=== PATIENT | male | born 1980 | race Caucasian/White ===

== ENCOUNTER 2016-12-19 20:33 | Emergency (ER) | payer MEDICAID, OTHER ==
[~2016-12-19] VITALS: Ht 167.6 cm; Wt 54.4 kg
[2016-12-19] MEDS ORDERED: NKM (20:39)
[2016-12-19] MEDS ORDERED: IBUPROFEN600 MG ORAL (22:02)
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
[2016-12-19 22:07] VITALS: BP 116/78
--- NOTE | 2016-12-20 10:32 | Diagnostic Imaging Report ---
Indication: Cervical trauma Technique: Cervical spine 4 views Comparison: None Findings: Cervical alignment is within normal limits. No displaced fractures are seen. Prevertebral soft tissues are within normal limits. There is mild degenerative spurring of C5/C6. Impression: No evidence of displaced fracture or cervical malalignment.
== END 2016-12-19 22:09 | disposition home or self-care (01) ==
LOC: EDBD 20:33 → EMR 21:38
DX: S16.1XXA Strain of muscle, fascia and tendon at neck level, initial encounter (principal); V43.52XA Car driver injured in collision with other type car in traffic accident, initial encounter; Y93.9 Activity, unspecified; Y92.411 Interstate highway as the place of occurrence of the external cause
CPT/HCPCS: 72040; 99283